=== PATIENT | male | born 1960 | race Caucasian/White ===

== ENCOUNTER → 2017-01-22 | Outpatient (CLI) | payer OTHER | END | disposition disaster alternative care site (69) | LOC: LGSMG 12:36 | DX: E11.9 Type 2 diabetes mellitus without complications (principal) ==

== ENCOUNTER → 2017-04-16 | Outpatient (CLI) | payer OTHER ==
[2017-04-17 12:31] LABS: HEMATOCRIT 43.8 % (37.0-53.0); HEMOGLOBIN 14.2 g/dL (12.0-17.0); MCH 29.2 pg (27.0-34.0); MCHC 32.4 gm/dL (32.0-36.5); MCV 89.9 fl (83.0-98.0); MPV 11.5 fl (9.4-12.4); RBC 4.87 M/uL (4.00-6.00); RDW-CV 13.3 % (11.9-14.6); WBC 9.1 K/uL (4.0-11.0)
== END ==
LOC: LGSMG 12:08
PROVIDERS: Internal Medicine
DX: N18.3 Chronic kidney disease, stage 3 (moderate) (principal); R30.0 Dysuria

== ENCOUNTER → 2017-04-17 | Outpatient (CLI) | payer OTHER | END | disposition disaster alternative care site (69) | LOC: LGSMG 11:51 | DX: N18.3 Chronic kidney disease, stage 3 (moderate) (principal); R30.0 Dysuria ==